=== PATIENT | female | born 1945 | race Caucasian/White ===

== ENCOUNTER → 2016-08-31 | Day surgery (SDC) | payer MEDICARE, BC ==
[~2016-08-31] VITALS: Ht 162.6 cm; Wt 102.9 kg
[~2016-08-31] MED LIST: ASPIRIN EC81 MG PO; BACTRIM DS1 TAB PO; BETAGAN 0.5%5 ML OPHTH; COREG25 MG PO; FLEXERIL10 MG PO; GLUCOPHAGE500 MG PO; LANTUS (IN100 UNIT/M SUB-Q; LISINOPRIL-HCT1 EAC1 PO; LUTEIN20 MG PO; NEURONTIN100 MG PO; OXYGEN M-15 INH; THERA-VITE W/ B1 TAB PO; VITAMIN B-1000 MCG/M SUB-Q; VITAMIN D2000 UNIT PO
== END | disposition disaster alternative care site (69) ==
LOC: GPOC 08-30 13:00 → GSDC 11:56 → GPOC 12:30
PROC: 3E0R33Z Introduction of Anti-inflammatory into Spinal Canal, Percutaneous Approach (ICD-10-PCS; principal; 2016-08-31)
DX: G89.29 Other chronic pain (principal); M51.17 Intervertebral disc disorders with radiculopathy, lumbosacral region; J44.9 Chronic obstructive pulmonary disease, unspecified; E11.9 Type 2 diabetes mellitus without complications; I10 Essential (primary) hypertension; M10.9 Gout, unspecified; I73.89 Other specified peripheral vascular diseases; Z88.0 Allergy status to penicillin; Z88.1 Allergy status to other antibiotic agents; Z88.8 Allergy status to other drugs, medicaments and biological substances; Z79.84 Long term (current) use of oral hypoglycemic drugs; Z79.82 Long term (current) use of aspirin; Z79.899 Other long term (current) drug therapy
CPT/HCPCS: J1040; J1100